=== PATIENT | female | born 1985 | race Caucasian/White ===

== ENCOUNTER → 2016-12-06 | Outpatient (CLI) | payer BC | LOC: LAB 18:48 | DX: R22.33 Localized swelling, mass and lump, upper limb, bilateral (principal) ==

== ENCOUNTER 2018-03-29 21:52 | Emergency (ER) | payer MEDICAID ==
[~2018-03-29] VITALS: Ht 170.2 cm; Wt 75.0 kg
[2018-03-29] MEDS ORDERED: ZANTAC 7575 M1 PO (22:14)
[2018-03-29] MEDS ORDERED: PRENATAL 19 TA1 EACH PO (22:15)
[2018-03-29 22:28] LABS: EOS # 0.1 (0.04-0.40); EOS % 0.8 % (1.0-5.0); HEMATOCRIT 35.2 % (37.0-47.0); LYMPH# 1.3 (1.50-4.00); MEAN CELL VOLUME 92 fl (78-100); MEAN CORPUSCULAR HEMOGLOBIN 31 pg (27-31); MEAN CORPUSCULAR HGB CONC 34 g/dL (33-37); MEAN PLATELET VOLUME 10.6 fl (7.4-10.4); MONO # 0.8 (0.20-0.80); NEU # 6.1 (1.40-6.50); PLATELET COUNT 245 K/mm3 (130-400); RED BLOOD COUNT 3.82 M/mm3 (4.10-5.30); RED CELL DISTRIBUTION WIDTH 12.3 % (11.5-14.5); WHITE BLOOD COUNT 8.3 K/mm3 (4.8-10.8)
[2018-03-29 23:20] VITALS: BP 120/54
== END 2018-03-29 23:20 | disposition home or self-care (01) ==
LOC: ED 21:52
PROVIDERS: Family Medicine
DX: O99.612 Diseases of the digestive system complicating pregnancy, second trimester (principal); K21.9 Gastro-esophageal reflux disease without esophagitis; O99.512 Diseases of the respiratory system complicating pregnancy, second trimester; J06.9 Acute upper respiratory infection, unspecified; O99.342 Other mental disorders complicating pregnancy, second trimester; F41.9 Anxiety disorder, unspecified; Z79.899 Other long term (current) drug therapy; R06.4 Hyperventilation; Z3A.17 17 weeks gestation of pregnancy

== ENCOUNTER → 2021-01-04 | Outpatient (CLI) | payer BC ==
[~2021-01-04] MED LIST: PRENATAL 19 TA1 EACH PO; ZANTAC 7575 M1 PO
[2021-01-04 12:16] LABS: BASO # 0.03 (0.02-0.10); EOS # 0.04 (0.04-0.40); EOS % 0.5 % (1.0-5.0); HEMATOCRIT 40.2 % (37.0-47.0); HEMOGLOBIN 13.4 g/dL (12.5-16.0); LYMPH# 1.16 (1.50-4.00); MEAN CELL VOLUME 91 fl (78-100); MEAN CORPUSCULAR HEMOGLOBIN 30 pg (27-31); MEAN CORPUSCULAR HGB CONC 33 g/dL (33-37); MEAN PLATELET VOLUME 10.4 fl (7.4-10.4); MONO # 0.43 (0.20-0.80); NEU # 6.37 (1.40-6.50); PLATELET COUNT 288 K/mm3 (130-400); RED BLOOD COUNT 4.42 M/mm3 (4.10-5.30); RED CELL DISTRIBUTION WIDTH 11.5 % (11.5-14.5)
[2021-01-04 12:23] LABS: ALBUMIN 4.5 g/dL (3.5-5.0); POTASSIUM 4.1 mmol/L (3.5-5.1)
[2021-01-04 12:24] LABS: CALCIUM 9.5 mg/dL (8.3-10.5)
[2021-01-04 12:27] LABS: TOTAL BILIRUBIN 0.5 mg/dL (0.2-1.2)
== END ==
LOC: RAD 12:04
PROVIDERS: Family Medicine
DX: R10.31 Right lower quadrant pain (principal)
CPT/HCPCS: Q9967